=== PATIENT | female | born 1995 | race Caucasian/White ===

== ENCOUNTER 2020-03-17 10:04 | Outpatient (REF) | payer OTHER, SELFPAY ==
[2020-03-18 02:49] LABS: CT PCR NOT DETECTED (Not Detect.); NG PCR NOT DETECTED (Not Detect.)
[2020-03-18 08:11] LABS: BV Int Neg Control Negative (Negative); BV Int Pos Control Positive (Positive)
== END 2020-03-17 10:05 | disposition home or self-care (01) ==
LOC: HO.LAB 10:04
PROVIDERS: Visit Provider Nurse Practitioner Family
DX: R10.2 Pelvic and perineal pain (principal); R30.0 Dysuria
CPT/HCPCS: 87086; 87088; 87186; 87480; 87491; 87510; 87591; 87660

== ENCOUNTER 2020-03-17 17:16 | Emergency (ER) | payer OTHER, SELFPAY ==
[2020-03-17 17:29] VITALS: BP 133/76; PULSE 100; RESP 14; TEMP 36.8; O2SAT 100; BMI 21.2
--- NOTE | 2020-03-17 19:08 | ED_ITS ---
HPI - Female Genitourinary General Chief complaint: Urogenital-Female Stated complaint: uti Time Seen by Provider: 03/17/20 19:08 Source: patient Mode of arrival: ambulatory Limitations: no limitations History of Present Illness MD elicited complaint: dysuria, UTI and possible STD (Recently sexually active with new partner unprotected) Onset (ago): day(s) (Several) Location of symptoms: vaginal Severity: mild Female Urogenital Radiation: Non-Radiating Quality of pain: other (Burning/ache-like) Consistency: intermittent (With voids) Vaginal discharge: none Vaginal bleeding: none Urinary symptoms: Dysuria Exacerbating factors: urination Relieving factors: none Associated symptoms: denies other symptoms Sexual activity: New Sexual Partners Patient : No Related Data Home Medications Medication Instructions Recorded Confirmed dextroamphetamine-amphetamine ER 1 cap PO DAILY PRN 03/17/20 10 mg 24hr capsule,extend release flu vac [id number] 36mos up(PF) ml IM 03/17/20 Previous Rx's Medication Instructions Recorded nitrofurantoin monohyd/m-cryst 100 mg PO Q12H 7 Days #14 cap 03/17/20 [Macrobid] phenazopyridine [Pyridium] 100 mg PO TID PRN #6 tab 03/17/20 metronidazole 500 mg tablet 500 mg PO BID 7 Days #14 tab 03/18/20 Allergies Allergy/AdvReac Type Severity Reaction Status Date / Time No Known Allergies Allergy Unverified 01/22/20 19:04 [No Known Allergies*] Review of Systems Review of Systems: Constitutional: No Weight loss, No Fever, No Chills, No Night Sweats, No Fatigue, No Malaise ENT/Mouth: No Hearing loss, No Ear Pain, No Nasal Congestion, No Sinus Pain, No Hoarseness, No sore throat, No Rhinorrhea, No Swallowing Difficulty Eyes: No Eye Pain, No Swelling, No Redness, No Foreign Body, No Discharge, No Vision Changes Cardiovascular: No Chest Pain, No SOB, No Dyspnea on Exertion, No Orthopnea, No Edema, No Palpitations Respiratory: No Cough, No Sputum, No Wheezing, No Smoke Exposure, No Dyspnea Gastrointestinal: No Nausea, No Vomiting, No Diarrhea, No Constipation, No abdominal Pain, No Hematochezia, No Melena Genitourinary: as noted in HPI, no rash or lesions Musculoskeletal: No joint pain, No Myalgias, No Joint Swelling Skin: No Skin Lesions, No rash Neuro: No Weakness Psych: No Social Issues Heme/Lymph: No Bruising, No Bleeding,No Lymphadenopathy Endocrine: No Polyuria, No Polydipsia, No Temperature Intolerance Yes all other systems are reviewed and are negative [facility] Past Medical History Attestation statement: The following information was validated with the patient. Medical History No known health problems Social History Social History Alcohol intake: current Alcohol intake frequency: holidays/special occasions only Smoking Status: Current some day smoker Use of substances other than those prescribed or required for medical reasons: No Advance Directives: No Advance Directives Information Provided: Yes Physical Exam Vital Signs: Vital Signs: Last Vital Signs Temp 99.4 F 03/17/20 21:29 Pulse 84 03/17/20 21:29 Resp 16 03/17/20 21:29 BP 122/91 H 03/17/20 21:29 Pulse Ox 98 03/17/20 21:29 Body Mass Index 21.2 Const: General: cooperative and healthy appearing; No acute distress or intoxicated appearing Nutritional Appearance: average body habitus Orientation/consciousness: patient oriented x3 HENMT: Head: Yes normal to inspection Ears: hearing grossly normal bilaterally Eyes: General: appearance normal, both eyes and all related structures Visual Barton: normal visual barton by confrontation Neck: Neck: Yes normal visual inspection and No tender Thyroid: Thyroid normal Chest: Chest palpation & inspection: normal inspection of the chest Resp: Effort & Inspection: normal respiratory effort Cardio: Jugular venous distension: no JVD GI: Inspection: Yes normal to inspection Palpation (GI): Soft to palpation, nontender, no guarding, not rigid, No Carnett's sign positive, No Rebound tenderness present and No Bladder palpation abnormal Percussion: Yes normal to percussion Auscultation: normal bowel sounds : Other: JOSE Strickland present for credit administrator General: No Bladder palpation abnormal and Yes no CVA tenderness Speculum Exam - Vagina: normal vaginal discharge (Very slight mucousy with DC), vagina not atrophic, no cysts, not erythematous, no foreign bodies, No vaginal bleeding, No tissue present in vagina, no masses, no swelling and nontender Speculum Exam - Cervix: normal appearance of the cervix OB/external & speculum: no foreign bodies, no tissue noted in vagina and vaginal bleeding Back/Spine/Pelvis: Back: no CVA tenderness Skin: General skin exam: no rashes or lesions noted Neuro: General: patient oriented x3 Extrem: General: Yes normal to inspection Course Course Course Narrative: Labs and pelvic ultrasound rule out cyst versus torsion. Repeat UA with microscopic analysis. Patient had BV/CT and she swabs done at urgent care results are pending in EMR. Given her risk factor and recent unprotected intercourse will go ahead and treat empirically with ceftriaxone/azithromycin after discussion with patient. Reevaluation(s) Reevaluation #1: For UA 2+ leukocyte Estrace without epithelial or bacterial cells. Given her symptoms patient was given ceftriaxone azithromycin for coverage of her nail disease. Will start on 7 day course Macrobid with panel testing pending. Labs as well as ultrasound findings reviewed. Patient denies any pain or discomfort at this time. Will follow-up closely with her primary care doctor. MDM - Female Genitourinary Differential Diagnosis Differential diagnosis: Likely urinary tract infection, bacterial vaginosis, trichomoniasis, cervicitis, ovarian cyst and vaginitis; Unlikely ruptured ovarian cyst, cyst of Bartholin's gland, cystitis and dysmenorrhea Medical Records Attestation: I reviewed the patient's medical records. Lab Data Attestation: I reviewed the patient's lab results. Result diagrams: 03/17/20 19:24 03/17/20 19:24 Labs: Lab Results 03/17/20 03/17/20 03/17/20 Range/Units 19:21 19:24 19:24 WBC 13.4 H (4.8-10.8) X10*3/uL RBC 4.42 (4.20-5.50) X10*6/uL Hgb 13.5 (12.0-16.0) g/dl Hct 39.3 (37-47) % MCV 88.9 (80-98) fL MCH 30.5 (27.0-33.0) pg MCHC 34.4 (31.0-35.0) g/dl RDW 12.2 (11.0-16.0) % Plt Count 274 (160-400) X10*3/uL MPV 9.7 (9.4-12.3) fL Immature Gran % (Auto) 0.4 (0.0-0.4) % Neut % (Auto) 70.2 (45-73) % Lymph % (Auto) 21.3 (20-40) % [place] % (Auto) 7.6 (2-11) % Eos % (Auto) 0.2 (0-4) % Baso % (Auto) 0.3 (0-2) % Lymph # (Auto) 2.8 (1.2-4.9) X10*3/uL [place] # (Auto) 1.0 (0.1-1.2) X10*3/uL Eos # (Auto) 0.0 (0.0-0.4) X10*3/uL Baso # (Auto) 0.0 (0.0-0.2) X10*3/uL Abs Immat Gran (auto) 0.05 H (0.00-0.03) X10*3/uL Absolute Neuts (auto) 9.4 H (2.0-8.3) X10*3/uL Absolute Nucleated RBC 0.000 (0.0-0.012) X10*3/uL Nucleated RBC % (auto) 0.0 (0.0-0.2) /100WBC Sodium 140 (135-145) mmol/L Potassium 3.4 (3.3-5.1) mmol/l Chloride 103 (96-108) mmol/L Carbon Dioxide 25 (22-29) mmol/L Anion Gap 15 (12-20) BUN 7 L (9-16) mg/dL Creatinine 0.74 (0.5-1.4) mg/dL Estim Creat Clear Calc 115.4 Estimated GFR > 60 Random Glucose 82 (60-115) mg/dL Calcium 9.4 (8.4-10.2) mg/dL Total Bilirubin 0.6 (0.0-1.0) mg/dL AST 16 (5-31) U/L ALT 13 (0-31) U/L Alkaline Phosphatase 43 (39-117) U/L Total Protein 7.8 (6.5-8.0) g/dL Albumin 4.8 (3.5-5.0) g/dL Urine Color YELLOW Urine Appearance CLEAR Urine pH 7.0 (5.0-8.0) Ur Specific [place] 1.010 (1.005-1.025) Urine Protein NEG (NEG-TRACE) MG/DL Urine Glucose (UA) NEG (NEG) MG/DL Urine Ketones NEG (NEG) MG/DL Urine Blood 3+ H (NEG) Urine Nitrite NEG (NEG) Ur Leukocyte Esterase 2+ H (NEG) Urine RBC 1-4 (0) /HPF Urine WBC 10-14 H (0-4) /HPF Ur Squamous Epith Cells NONE /LPF Urine Bacteria NONE /LPF Urine Test NEGATIVE (NEGATIVE) Imaging Data Pelvic/transvaginal/ovarian Doppler ultrasound: Radiologist's impression: Mikala Erickson 24 F [address] [address] Ultrasound Report Signed Patient: Mikala Erickson MMR#: [id number] : 1995Acct:[id number] Age/Sex: 24 / FADM Date: 03/17/20 Loc: .ED Attending Dr: Ordering Physician: Darian Hoffman NP Date of Service: 03/17/20 Procedure(s): US pelvic complete Accession Number(s): [id number] cc: Darian Hoffman NP~ EXAMINATION: PELVIC ULTRASOUND CLINICAL INFORMATION: Pelvic pain COMPARISON: 12/08/2016 TECHNIQUE: Both transabdominal endovaginal ultrasound was performed FINDINGS: An anteverted uterus is present measuring 7.6 x 3.8 x 3.3 cm. An IUD is noted within the endometrial cavity in normal position. The right ovary was not seen. The left ovary measured 3.5 x 2.7 x 2.0 cm for a volume of 10 mL and appeared normal. A tiny amount of free fluid is present pelvis. US/US pelvic complete IMPRESSION: 1. Right ovary not visualized. Left ovary normal. 2. An IUD is present in the normal-appearing uterus in good position. Dictated By:MARY LUCAS MD Signed By:<Electronically signed by MARY LUCAS MD in OV>03/17/202042 DD/ 12 TD/TT: County Commissioner: Discharge Plan Discharge Clinical Impression: Urinary tract infection, Possible exposure to STD Patient Disposition: Home, Self-Care Additional Instructions: today you are evaluated for your urinary complaints and possible exposure to STD Your had STD testing done today in the office urine shows early urinary tract infection Your STD testing results are pending We have gone ahead and empirically treated you for possible to common STDs ( chlamydia/gonorrhea) Wait for the results of these We are going to start you on antibiotics for UTI please take these as prescribed for the full course Return if any concerns or worsening symptoms Thank you Prescriptions: New nitrofurantoin monohyd/m-cryst [Macrobid] 100 mg capsule 100 mg PO Q12H 7 Days Qty: 14 RF: 0 phenazopyridine [Pyridium] 100 mg tablet 100 mg PO TID PRN (Reason: pain) Qty: 6 RF: 0 No Action metronidazole 500 mg tablet 500 mg PO BID 7 Days Qty: 14 RF: 0 dextroamphetamine-amphetamine 10 mg capsule,extended release 24hr 1 cap PO DAILY PRNRF: 0 Afluria Qd 2019-(3yr up)(PF) 60 mcg (15 mcg x 4)/0.5 mL syringe IM RF: 0 Referrals: Kim Sandoval MD [Primary Care Provider] - 1 week Interventions: ED Discharge Assessment Last Done: 03/17/20 21:30 Discharge Date/Time: 03/17/20 21:30
--- NOTE | 2020-03-17 19:13 | US_ITS ---
X US/US pelvic ovarian doppler IMPRESSION: 1. Right ovary not visualized. Left ovary normal. 2. An IUD is present in the normal-appearing uterus in good position.
--- NOTE | 2020-03-17 19:13 | US_ITS ---
X US/US transvaginal IMPRESSION: 1. Right ovary not visualized. Left ovary normal. 2. An IUD is present in the normal-appearing uterus in good position.
--- NOTE | 2020-03-17 19:13 | US_ITS ---
X US/US pelvic complete IMPRESSION: 1. Right ovary not visualized. Left ovary normal. 2. An IUD is present in the normal-appearing uterus in good position.
[2020-03-17 19:31] LABS: MANUAL DIFF FLAG NO
[2020-03-17 19:31] LABS: Appearance Urine CLEAR; Color Urine YELLOW; Glucose Urine UA NEG (NEG); Leukocyte Esterase Urine 2+ (NEG); Nitrite Urine NEG (NEG); Urine Blood 3+ (NEG); Urine Ketones NEG (NEG); Urine Protein NEG (NEG-TRACE)
[2020-03-17 19:33] LABS: UPreg QC Valid YES; Urine Pregnancy NEGATIVE (NEGATIVE)
[2020-03-17 19:37] LABS: Basophils Percent Auto 0.3 % (0-2); Eosinophils Percent Auto 0.2 % (0-4); Hematocrit 39.3 % (37-47); Hemoglobin 13.5 g/dl (12.0-16.0); Imm Gran Abs Auto 0.05 X10*3/uL (0.00-0.03); Imm Gran Pct Auto 0.4 % (0.0-0.4); Lymphocytes Absolute Auto 2.8 X10*3/uL (1.2-4.9); Lymphocytes Percent Auto 21.3 % (20-40); Mean Corpuscular HGB Conc 34.4 g/dl (31.0-35.0); Mean Corpuscular Hemoglobin 30.5 pg (27.0-33.0); Mean Corpuscular Volume 88.9 fL (80-98); Mean Platelet Volume 9.7 fL (9.4-12.3); Monocytes Percent Auto 7.6 % (2-11); Neutrophils Absolute Auto 9.4 X10*3/uL (2.0-8.3); Neutrophils Percent Auto 70.2 % (45-73); Platelet Count 274 X10*3/uL (160-400); Red Blood Count 4.42 X10*6/uL (4.20-5.50); Red Cell Distribution Width 12.2 % (11.0-16.0); White Blood Count 13.4 X10*3/uL (4.8-10.8)
[2020-03-17 19:59] LABS: Alanine Aminotransferase 13 U/L (0-31); Albumin Level 4.8 g/dL (3.5-5.0); Alkaline Phosphatase 43 U/L (39-117); Anion Gap 15 (12-20); Aspartate Amino Transferase 16 U/L (5-31); Bilirubin Total 0.6 mg/dL (0.0-1.0); Blood Urea Nitrogen 7 mg/dL (9-16); Calcium 9.4 mg/dL (8.4-10.2); Carbon Dioxide 25 mmol/L (22-29); Chloride 103 mmol/L (96-108); Creatinine Clr Calc Pharmacy 115.4; Estimated Glomerular Filt Rate > 60; Glucose Random 82 mg/dL (60-115); Potassium 3.4 mmol/l (3.3-5.1); Sodium 140 mmol/L (135-145); Total Protein 7.8 g/dL (6.5-8.0)
[2020-03-17] MEDS: cefTRIAXone sodium 250 MG VIAL IM (20:42)
[2020-03-17] MEDS: Azithromycin 500 MG TABLET 1000 MG PO (20:42)
[2020-03-17 21:29] VITALS: BP 122/91; PULSE 84; RESP 16; TEMP 37.4; O2SAT 98
== END 2020-03-17 21:30 | disposition home or self-care (01) ==
PROVIDERS: Nurse Practitioner Primary Care; Emergency Provider Emergency Medicine Emergency Medical Services; PCP Internal Medicine
DX: N39.0 Urinary tract infection, site not specified (principal); R10.2 Pelvic and perineal pain; R30.0 Dysuria; Z20.2 Contact with and (suspected) exposure to infections with a predominantly sexual mode of transmission; F17.200 Nicotine dependence, unspecified, uncomplicated; Z79.899 Other long term (current) drug therapy; Z71.6 Tobacco abuse counseling
CPT/HCPCS: 36415; 76830; 76856; 80053; 81001; 81025; 85025; 93975; 96372; 99284; J0696

== ENCOUNTER 2020-08-19 08:46 | Outpatient (REF) | payer MEDICAID, SELFPAY ==
--- NOTE | ~2020-08-19 | US_ITS ---
EXAMINATION: US DIAGNOSTIC ULTRASOUND BREAST, LEFT CLINICAL INFORMATION: Palpable abnormality. COMPARISON: None. TECHNIQUE: Ultrasound of the breast is performed with real-time riggins-scale imaging and color Doppler. FINDINGS: In region of palpable abnormality, there is a heterogeneous density 2 o'clock position 9 cm from the nipple, measuring approximately 1.4 x 0.8 x 0.4 cm in size. There is no distal sound enhancement, and there is the appearance of some distal sound shadowing. There is some internal vascularity. The lesion is wider than it is tall. Ultrasound-guided core biopsy is recommended. Results are discussed with the patient at time of visit. Alethea at referring provider's office was notified of the above recommendation. US/US breast LT limited IMPRESSION: Palpable abnormality corresponds to a poorly defined vascular structure at 2 o'clock position 9 cm from the nipple, for which ultrasound-guided core biopsy is recommended. ASSESSMENT: BI-RADS 4: Suspicious. RECOMMENDATION: Ultrasound-guided biopsy left breast.
== END 2020-08-19 08:47 | disposition home or self-care (01) ==
LOC: HO.MAMMO 08:46
PROVIDERS: Visit Provider Internal Medicine
DX: N63.21 Unspecified lump in the left breast, upper outer quadrant (principal)
CPT/HCPCS: 76642

== ENCOUNTER 2020-08-26 09:47 | Outpatient (REF) | payer MEDICAID, SELFPAY ==
--- NOTE | ~2020-08-26 | US_ITS ---
PROCEDURE: US GUIDED BREAST BIOPSY, LEFT CLINICAL INFORMATION: Palpable lump 2:00 position left breast COMPARISON: August 19, 2020 PROCEDURAL DETAILS: The details of the procedure, as well as the risks, benefits, and alternatives to the procedure were explained to the patient in detail and all of her questions were answered, after which written informed consent was obtained. Site and side were confirmed. Prior to the procedure, sonography revealed a solid hypoechoic lesion with some mild vascularity.. A time-out was performed, the lesion intended for biopsy was targeted, and the skin of the left breast was then prepped and draped in the usual sterile fashion. Using sonographic guidance, sterile technique, and 1% lidocaine without epinephrine for local anesthesia, multiple automated core biopsies were obtained through the targeted area with a 14G spring loaded Achieve core biopsy device. There was real-time confirmation of appropriate needle passage. Sampling was documented. At the completion of tissue sampling, a single butterfly-shaped metallic clip was deposited at the biopsy site. There was no evidence of immediate complication. SPECIMEN: An appropriate sample was obtained. No postprocedure mammogram was performed with direct visualization of clip placement under ultrasound. The patient tolerated the procedure well and, after assuring adequate hemostasis, was discharged in good condition after reviewing postbiopsy breast care instructions. Final pathology results are pending. US/US breast ndl core biopsy LT IMPRESSION: 1. No immediate complication from ultrasound-guided percutaneous biopsy left breast. 2. Ultrasound was used to localize and guide marker clip placement. 3. Final pathology results are pending. A separate report with final recommendations will be issued once these results are made available.
== END 2020-08-26 09:48 | disposition home or self-care (01) ==
LOC: HO.MAMMO 09:47
PROVIDERS: PCP Internal Medicine; Visit Provider Internal Medicine
DX: N63.21 Unspecified lump in the left breast, upper outer quadrant (principal)
CPT/HCPCS: 19083; 88305

== ENCOUNTER 2021-02-10 18:50 | Emergency (ER) | payer MEDICAID, SELFPAY ==
[2021-02-10 20:19] VITALS: BP 131/75; PULSE 91; RESP 16; TEMP 37.1; O2SAT 100; BMI 21.2
[2021-02-10 20:42] LABS: Appearance Urine CLOUDY; Color Urine DK YELLOW; Glucose Urine UA 100 MG/DL (NEG); Leukocyte Esterase Urine 3+ (NEG); Nitrite Urine POS (NEG); Specific Gravity - Urine 1.015 (1.005-1.025); UACC Culture Trigger YES; Urine Blood 3+ (NEG); Urine Ketones 5 MG/DL (NEG); Urine Protein 2+ MG/DL (NEG-TRACE)
[2021-02-10 20:44] LABS: Urine Pregnancy NEGATIVE (NEGATIVE)
[2021-02-10 20:45] LABS: UPreg QC Valid YES
[2021-02-10 20:48] LABS: Bacteria Urine TRACE /LPF; Mucus Urine TRACE /LPF; Squamous Epithelial Cell Urine TRACE /LPF
[2021-02-10 20:49] LABS: RBC Urine 50-75 /HPF (0); WBC Urine 30-49 /HPF (0-4)
[2021-02-10 22:57] LABS: MANUAL DIFF FLAG NO
[2021-02-10 22:58] LABS: Basophils Percent Auto 0.3 % (0-2); Eosinophils Percent Auto 0.3 % (0-4); Hematocrit 38.7 % (37-47); Hemoglobin 13.2 g/dl (12.0-16.0); Imm Gran Abs Auto 0.02 X10*3/uL (0.00-0.03); Imm Gran Pct Auto 0.2 % (0.0-0.4); Lymphocytes Absolute Auto 1.7 X10*3/uL (1.2-4.9); Lymphocytes Percent Auto 14.7 % (20-40); Mean Corpuscular HGB Conc 34.1 g/dl (31.0-35.0); Mean Corpuscular Hemoglobin 30.4 pg (27.0-33.0); Mean Corpuscular Volume 89.2 fL (80-98); Mean Platelet Volume 9.6 fL (9.4-12.3); Monocytes Percent Auto 8.8 % (2-11); Neutrophils Absolute Auto 8.5 X10*3/uL (2.0-8.3); Neutrophils Percent Auto 75.7 % (45-73); Platelet Count 251 X10*3/uL (160-400); Red Blood Count 4.34 X10*6/uL (4.20-5.50); Red Cell Distribution Width 12.1 % (11.0-16.0); White Blood Count 11.2 X10*3/uL (4.8-10.8)
[2021-02-10 23:04] VITALS: BP 131/85; PULSE 91; RESP 18; O2SAT 100
[2021-02-10] MEDS: Phenazopyridine HCL 100 MG TABLET PO (23:09)
[2021-02-10] MEDS: Sulfamethox/Trimeth 800/160 TABLET 1 TAB PO (23:09)
[2021-02-10 23:18] LABS: Anion Gap 13 (12-20); Blood Urea Nitrogen 9 mg/dL (9-16); Calcium 9.9 mg/dL (8.4-10.2); Carbon Dioxide 23 mmol/L (22-29); Chloride 108 mmol/L (96-108); Creatinine Clr Calc Pharmacy 122.7; Estimated Glomerular Filt Rate > 60; Glucose Random 94 mg/dL (60-115); Potassium 3.9 mmol/L (3.3-5.1); Sodium 140 mmol/L (135-145)
--- NOTE | 2021-02-10 23:26 | ED.FEMALEGU ---
HPI - Female Genitourinary General Chief complaint: Urogenital-Female Stated complaint: uti? Time Seen by Provider: 02/10/21 22:43 Source: patient Mode of arrival: ambulatory Limitations: no limitations History of Present Illness HPI Narrative: Patient comes to the emergency room complaining of suprapubic pain and hematuria. Patient states he has had multiple UTIs in the past and feels the same. Patient denies flank pain, no fever or chills. Patient states her symptoms started approximately 8 hours ago. Related Data Home Medications Medication Instructions Recorded Confirmed flu vac [id number] 36mos up(PF) ml IM 03/17/20 08/19/20 clonazepam 0.5 mg tablet 0.5 mg PO DAILY PRN 08/13/20 08/19/20 dextroamphetamine-amphetamine ER 20 mg PO DAILY PRN cap 08/13/20 08/19/20 10 mg 24hr capsule,extend release levonorgestrel 20 mcg/24 hours (7 INTRAUTERINE 08/13/20 08/19/20 yrs) 52 mg intrauterine device (Mirena) Previous Rx's Medication Instructions Recorded phenazopyridine 100 mg tablet 100 mg PO TID PRN #6 tab 02/10/21 sulfamethoxazole 800 1 tab PO BID #6 tab 02/10/21 mg-trimethoprim 160 mg tablet (Bactrim DS) Allergies Allergy/AdvReac Type Severity Reaction Status Date / Time No Known Allergies Allergy Verified 02/10/21 20:19 [No Known Allergies*] Review of Systems Review of Systems: Constitutional : No Weight loss, No Fever, No Chills, No Night Sweats, No Fatigue, No Malaise ENT/Mouth : No Hearing loss, No Ear Pain, No Nasal Congestion, No Sinus Pain, No Hoarseness, No sore throat, No Rhinorrhea, No Swallowing Difficulty Eyes: No Eye Pain, No Swelling, No Redness, No Foreign Body, No Discharge, No Vision Changes Cardiovascular : No Chest Pain, No SOB, No Dyspnea on Exertion, No Orthopnea, No Edema, No Palpitations Respiratory : No Cough, No Sputum, No Wheezing, No Smoke Exposure, No Dyspnea Gastrointestinal : No Nausea, No Vomiting, No Diarrhea, No Constipation, No abdominal Pain, No Hematochezia, No Melena Genitourinary : no irregular bleeding, complaining of dysuria, hematuria, frequency, No Flank Pain, No Urinary Flow Changes, No Hesitancy Musculoskeletal : No joint pain, No Myalgias, No Joint Swelling Skin : No Skin Lesions, No rash Neuro : No Weakness, No Numbness, No Paresthesias, No Loss of Consciousness, No Dizziness, No Headache Psych : No Anxiety/Panic, No Depression, No SI/HI/AH/VH, No Social Issues, Heme/Lymph: No Bruising, No Bleeding,No Lymphadenopathy Endocrine : No Polyuria, No Polydipsia, No Temperature Intolerance [facility] Past Medical History Medical History ADHD (attention deficit hyperactivity disorder), inattentive type Mass of left breast No known health problems Surgical History No pertinent past surgical history Family History Family History (Updated 08/19/20 @ 10:17 by KENDRICK Riddle) Father HTN (hypertension) Anxiety Mother Afib Breast cancer, Onset Age: 54 Maternal Grandmother Cervical cancer Maternal Grandfather CVD (cardiovascular disease) Myocardial infarction Paternal Grandfather Unknown family medical history Paternal Grandmother Unknown family medical history Social History Social History (Updated 08/13/20 @ 10:08 by Marlen Burrell CMA) Alcohol intake: current Alcohol intake frequency: holidays/special occasions only Patient Tobacco Use Status: Current someday Tobacco user Use of substances other than those prescribed or required for medical reasons: No Advance Directives: No Advance Directives Information Provided: No Physical Exam Vital Signs: Vital Signs: Last Vital Signs Temp 98.8 F 02/10/21 20:19 Pulse 91 02/10/21 23:04 Resp 18 02/10/21 23:04 BP 131/85 02/10/21 23:04 Pulse Ox 100 02/10/21 23:04 Body Mass Index 21.2 Const: Other: Appearance: Alert. Oriented X3. No acute distress. Eyes: Pupils equal, round and reactive to light. ENT: Pharynx normal. Neck: Normal inspection. Neck supple. No lymph nodes noted. No crepitus CVS: Normal heart rate and rhythm. Pulses normal. Normal S1 and S2 Respiratory: No respiratory distress. Breath sounds normal. No Wheezing. No rales Abdomen: Soft and nontender. No rigidity. No distention. No CVA tenderness bilaterally Skin: Skin warm and dry. Normal skin color. Normal skin turgor. Extremities: No lower extremity edema. No lower extremity edema. No Lacerations. No Rash Neuro: Oriented X 3. No motor deficit. No sensory deficit. Moving all extermities. No slurred speech. Course Course Course Narrative: Patient does have a UTI, white blood cell count chronically elevated, no CVA tenderness, pyelonephritis or sepsis are not suspected. Patient was given the 1st dose of phenazopyridine and Bactrim in the emergency room. MDM - Female Genitourinary Lab Data Result diagrams: 02/10/21 22:52 02/10/21 22:52 Labs: Lab Results 02/10/21 02/10/21 02/10/21 Range/Units 20:34 20:34 22:52 WBC 11.2 H (4.8-10.8) X10*3/uL RBC 4.34 (4.20-5.50) X10*6/uL Hgb 13.2 (12.0-16.0) g/dl Hct 38.7 (37-47) % MCV 89.2 (80-98) fL MCH 30.4 (27.0-33.0) pg MCHC 34.1 (31.0-35.0) g/dl RDW 12.1 (11.0-16.0) % Plt Count 251 (160-400) X10*3/uL MPV 9.6 (9.4-12.3) fL Immature Gran % (Auto) 0.2 (0.0-0.4) % Neut % (Auto) 75.7 H (45-73) % Lymph % (Auto) 14.7 L (20-40) % [place] % (Auto) 8.8 (2-11) % Eos % (Auto) 0.3 (0-4) % Baso % (Auto) 0.3 (0-2) % Lymph # (Auto) 1.7 (1.2-4.9) X10*3/uL [place] # (Auto) 1.0 (0.1-1.2) X10*3/uL Eos # (Auto) 0.0 (0.0-0.4) X10*3/uL Baso # (Auto) 0.0 (0.0-0.2) X10*3/uL Abs Immat Gran (auto) 0.02 (0.00-0.03) X10*3/uL Absolute Neuts (auto) 8.5 H (2.0-8.3) X10*3/uL Absolute Nucleated RBC 0.000 (0.0-0.012) X10*3/uL Nucleated RBC % (auto) 0.0 (0.0-0.2) /100WBC Sodium (135-145) mmol/L Potassium (3.3-5.1) mmol/L Chloride (96-108) mmol/L Carbon Dioxide (22-29) mmol/L Anion Gap (12-20) BUN (9-16) mg/dL Creatinine (0.5-1.4) mg/dL Estim Creat Clear Calc Estimated GFR Random Glucose (60-115) mg/dL Calcium (8.4-10.2) mg/dL Urine Color DK YELLOW Urine Appearance CLOUDY Urine pH 6.0 (5.0-8.0) Ur Specific [place] 1.015 (1.005-1.025) Urine Protein 2+ H (NEG-TRACE) MG/DL Urine Glucose (UA) 100 H (NEG) MG/DL Urine Ketones 5 (NEG) MG/DL Urine Blood 3+ H (NEG) Urine Nitrite POS H (NEG) Ur Leukocyte Esterase 3+ H (NEG) Urine RBC 50-75 H (0) /HPF Urine WBC 30-49 H (0-4) /HPF Ur Squamous Epith Cells TRACE /LPF Urine Bacteria TRACE /LPF Urine Mucus TRACE /LPF Urine Test NEGATIVE (NEGATIVE) 02/10/21 Range/Units 22:52 WBC (4.8-10.8) X10*3/uL RBC (4.20-5.50) X10*6/uL Hgb (12.0-16.0) g/dl Hct (37-47) % MCV (80-98) fL MCH (27.0-33.0) pg MCHC (31.0-35.0) g/dl RDW (11.0-16.0) % Plt Count (160-400) X10*3/uL MPV (9.4-12.3) fL Immature Gran % (Auto) (0.0-0.4) % Neut % (Auto) (45-73) % Lymph % (Auto) (20-40) % [place] % (Auto) (2-11) % Eos % (Auto) (0-4) % Baso % (Auto) (0-2) % Lymph # (Auto) (1.2-4.9) X10*3/uL [place] # (Auto) (0.1-1.2) X10*3/uL Eos # (Auto) (0.0-0.4) X10*3/uL Baso # (Auto) (0.0-0.2) X10*3/uL Abs Immat Gran (auto) (0.00-0.03) X10*3/uL Absolute Neuts (auto) (2.0-8.3) X10*3/uL Absolute Nucleated RBC (0.0-0.012) X10*3/uL Nucleated RBC % (auto) (0.0-0.2) /100WBC Sodium 140 (135-145) mmol/L Potassium 3.9 (3.3-5.1) mmol/L Chloride 108 (96-108) mmol/L Carbon Dioxide 23 (22-29) mmol/L Anion Gap 13 (12-20) BUN 9 (9-16) mg/dL Creatinine 0.69 (0.5-1.4) mg/dL Estim Creat Clear Calc 122.7 Estimated GFR > 60 Random Glucose 94 (60-115) mg/dL Calcium 9.9 (8.4-10.2) mg/dL Urine Color Urine Appearance Urine pH (5.0-8.0) Ur Specific [place] (1.005-1.025) Urine Protein (NEG-TRACE) MG/DL Urine Glucose (UA) (NEG) MG/DL Urine Ketones (NEG) MG/DL Urine Blood (NEG) Urine Nitrite (NEG) Ur Leukocyte Esterase (NEG) Urine RBC (0) /HPF Urine WBC (0-4) /HPF Ur Squamous Epith Cells /LPF Urine Bacteria /LPF Urine Mucus /LPF Urine Test (NEGATIVE) Discharge Plan Discharge Clinical Impression: Urinary tract infection Patient Disposition: Home, Self-Care Instructions: Urinary Tract Infection in Women (ED) Additional Instructions: Please follow-up with your primary care physician tomorrow. If you have any worsening or new symptoms, please return to the emergency room or call 911 Prescriptions: New sulfamethoxazole-trimethoprim [Bactrim DS] 800-160 mg tablet 1 tab PO BID Qty: 6 RF: 0 phenazopyridine 100 mg tablet 100 mg PO TID PRN (Reason: pain) Qty: 6 RF: 0 No Action clonazepam 0.5 mg tablet 0.5 mg PO DAILY PRNRF: 0 Mirena 20 mcg/24 hours (6 yrs) 52 mg intrauterine device intrauterine RF: 0 Afluria Qd (3yr up)(PF) 60 mcg (15 mcg x 4)/0.5 mL syringe IM RF: 0 dextroamphetamine-amphetamine 10 mg capsule,extended release 24hr 20 mg PO DAILY PRNRF: 0
== END 2021-02-10 23:39 | disposition home or self-care (01) ==
PROVIDERS: Emergency Provider Emergency Medicine; PCP Internal Medicine
DX: N39.0 Urinary tract infection, site not specified (principal); Z87.440 Personal history of urinary (tract) infections
CPT/HCPCS: 36415; 80048; 81001; 81025; 85025; 87086; 87088; 87186; 99283; 99284

== ENCOUNTER 2021-05-03 11:12 | Emergency (ER) | payer MEDICAID, SELFPAY ==
[2021-05-03 12:19] VITALS: BP 135/71; PULSE 93; RESP 17; TEMP 36.7; O2SAT 97; BMI 21.2
--- NOTE | 2021-05-03 15:09 | ED_ITS ---
HPI - General Adult General Chief complaint: General Medical Stated complaint: Bat Exposure Time Seen by Provider: 05/03/21 15:09 Source: patient Mode of arrival: ambulatory Limitations: no limitations History of Present Illness HPI narrative: 25-year-old female who had a bat in her apartment for the last several days, touched the bat while she was getting it out of her apartment. She is on sure if the bat bit her. She was asleep for the last few nights when the at was in the apartment. Her primary care directed her here for rabies prophylaxis. She feels well otherwise. Related Data Home Medications Medication Instructions Recorded Confirmed flu vac [id number] 36mos up(PF) ml IM 03/17/20 08/19/20 clonazepam 0.5 mg tablet 0.5 mg PO DAILY PRN 08/13/20 08/19/20 dextroamphetamine-amphetamine ER 20 mg PO DAILY PRN cap 08/13/20 08/19/20 10 mg 24hr capsule,extend release levonorgestrel 20 mcg/24 hours (7 INTRAUTERINE 08/13/20 08/19/20 yrs) 52 mg intrauterine device (Mirena) Previous Rx's Medication Instructions Recorded phenazopyridine 100 mg tablet 100 mg PO TID PRN #6 tab 02/10/21 sulfamethoxazole 800 1 tab PO BID #6 tab 02/10/21 mg-trimethoprim 160 mg tablet (Bactrim DS) Allergies Allergy/AdvReac Type Severity Reaction Status Date / Time No Known Allergies Allergy Verified 02/10/21 20:19 [No Known Allergies*] Review of Systems Constitutional: Constitutional: Denies body ache(s), Denies chills, Denies fatigue, Denies fever(s), Denies headache(s), Denies malaise and Denies weakness Eyes: Eyes: Denies diplopia ENT: Denies vertigo, Denies dizziness, Denies otalgia, Denies headache(s), Denies mouth pain, Denies post nasal drip, Denies sinus pain, Denies sinus pressure, Denies sore throat and Denies throat swelling Cardiovascular: Cardiovascular: Denies chest pain, Denies syncope, Denies leg edema, Denies lightheadedness, Denies Loss of Consciousness, Denies palpitations and Denies dyspnea Respiratory: Respiratory: Denies chest congestion, Denies cough and Denies dyspnea Gastrointestinal: Gastrointestinal: Denies abdominal pain, Denies hematochezia, Denies constipation, Denies diarrhea and Denies vomiting Musculoskeletal: Musculoskeletal: Reports no additional musculoskeletal complaints Integumentary/Breasts: Comments: Possible bat bite, no open wounds Neurologic: Denies confusion, Denies vertigo, Denies dizziness, Denies syncope, Denies headache(s) and Denies weakness Psychiatric: Psychiatric: Denies anxiety, Denies confusion and Denies depression Endocrine: Endocrine: Denies fatigue and Denies palpitations Allergic/Immunologic: Allergic/Immunologic: Denies throat swelling PMFSH Past Medical History Medical History ADHD (attention deficit hyperactivity disorder), inattentive type Mass of left breast No known health problems Surgical History No pertinent past surgical history Family History Family History (Updated 08/19/20 @ 10:17 by KENDRICK Riddle) Father HTN (hypertension) Anxiety Mother Afib Breast cancer, Onset Age: 54 Maternal Grandmother Cervical cancer Maternal Grandfather CVD (cardiovascular disease) Myocardial infarction Paternal Grandfather Unknown family medical history Paternal Grandmother Unknown family medical history Social History Social History (Updated 08/13/20 @ 10:08 by Marlen Burrell CMA) Alcohol intake: current Alcohol intake frequency: holidays/special occasions only Patient Tobacco Use Status: Current someday Tobacco user Advance Directives: No Advance Directives Information Provided: Yes Patient : No Physical Exam Vital Signs: Vital Signs: Last Vital Signs Temp 98.0 F 05/03/21 12:19 Pulse 93 05/03/21 12:19 Resp 17 05/03/21 12:19 BP 135/71 05/03/21 12:19 Pulse Ox 97 05/03/21 12:19 BMI result Body Mass Index 21.2 Const: General: No confusion Nutritional Appearance: well nourished Orientation/consciousness: No confusion Limitations: no limitations HENMT: Head: Yes normal to inspection, Yes normocephalic and Yes atraumatic Ears: hearing grossly normal bilaterally, external ears normal, TM's normal bilaterally and EAC's normal General nose exam: Normal external nose present Face and sinus: Yes normal facial exam and Yes sinuses nontender Mouth: Normal oral and palatal mucosa present Throat: Yes posterior oropharynx normal Eyes: Conjunctivae: conjunctivae normal Pupils: Equal, round and reactive pupils present EOM: EOMs intact bilaterally Neck: Neck: Yes full ROM, Yes no lymphadenopathy and Yes supple Resp: Effort & Inspection: normal respiratory effort and able to speak in complete sentences Auscultation: clear to auscultation bilaterally, no crackles, no rales, no rhonchi and no wheezes Cardio: Rate: regular rate Rhythm: regular rhythm Heart sounds: S1 normal heart sound present and S2 normal heart sound present GI: Inspection: Yes normal to inspection Palpation (GI): Soft to palpation, nontender, no guarding and not rigid Percussion: Yes normal to percussion Auscultation: normal bowel sounds Skin: Other: No puncture wounds, open wounds, or lesions noted on patient's hands General skin exam: no rashes or lesions noted Neuro: General: No confusion Cranial nerves: Yes Equal, round and reactive pupils present Extrem: General: Yes normal to inspection and Yes full ROM Psych: Appearance: grossly normal Affect: normal affect Attitude: co operative Thought process: Normal thought process present Course Course Course Narrative: 25-year-old female here for prophylaxis for bat exposure. Patient is up-to-date on her tetanus, last tetanus shot was 2018 Will give rabies vaccination, immunoglobulin. Counseled patient to return to medical day stay for her next 3 vaccinations on days 3, 7, and 14 Discharge Plan Discharge Clinical Impression: Exposure to bat without known bite Patient Disposition: Home, Self-Care Instructions: Rabies Vaccine (By injection), Rabies Immune Globulin (By injection), Rabies (ED) Additional Instructions: Please return to medical day Prescriptions: No Action sulfamethoxazole-trimethoprim [Bactrim DS] 800-160 mg tablet 1 tab PO BID Qty: 6 RF: 0 phenazopyridine 100 mg tablet 100 mg PO TID PRN (Reason: pain) Qty: 6 RF: 0 clonazepam 0.5 mg tablet 0.5 mg PO DAILY PRNRF: 0 Mirena 20 mcg/24 hours (6 yrs) 52 mg intrauterine device intrauterine RF: 0 Afluria Qd 2019-(3yr up)(PF) 60 mcg (15 mcg x 4)/0.5 mL syringe IM RF: 0 dextroamphetamine-amphetamine 10 mg capsule,extended release 24hr 20 mg PO DAILY PRNRF: 0
[2021-05-03 15:34] VITALS: BP 139/66; PULSE 90; RESP 16; O2SAT 99
[2021-05-03] MEDS: Rabies Vaccine (PCEC)/PF 1 ML VIAL IM (16:16)
[2021-05-03] MEDS: Rabies Immune Globulin/PF 1,500 UNIT/5 ML VIAL 1270.06 UNIT IM (16:29)
== END 2021-05-03 16:54 | disposition home or self-care (01) ==
PROVIDERS: Emergency Provider Emergency Medicine; PCP Internal Medicine
DX: Z20.3 Contact with and (suspected) exposure to rabies (principal)
CPT/HCPCS: 90375; 90471; 90675; 96372; 99284

== ENCOUNTER 2021-05-06 10:06 | Outpatient (REF) | payer MEDICAID, SELFPAY | END 2021-05-06 10:07 | disposition home or self-care (01) | LOC: HO.MDS 10:06 | PROVIDERS: PCP Internal Medicine | DX: Z29.14 Encounter for prophylactic rabies immune globulin (principal); Z20.3 Contact with and (suspected) exposure to rabies | CPT/HCPCS: 90471; 90675 ==

== ENCOUNTER 2021-05-10 13:09 | Outpatient (REF) | payer MEDICAID, SELFPAY | END 2021-05-10 13:10 | disposition home or self-care (01) | LOC: HO.MDS 13:09 | PROVIDERS: PCP Internal Medicine | DX: Z29.14 Encounter for prophylactic rabies immune globulin (principal); Z20.3 Contact with and (suspected) exposure to rabies | CPT/HCPCS: 90471; 90675 ==

== ENCOUNTER 2021-05-17 13:04 | Outpatient (REF) | payer MEDICAID, SELFPAY | END 2021-05-17 13:05 | disposition home or self-care (01) | LOC: HO.MDS 13:04 | PROVIDERS: PCP Internal Medicine | DX: Z29.14 Encounter for prophylactic rabies immune globulin (principal); Z20.3 Contact with and (suspected) exposure to rabies | CPT/HCPCS: 90471; 90675 ==

== ENCOUNTER 2022-06-02 13:38 | Outpatient (REF) | payer BC, MEDICAID, SELFPAY ==
[2022-06-02 17:40] LABS: CT PCR NOT DETECTED (Not Detect.); NG PCR NOT DETECTED (Not Detect.)
== END 2022-06-02 13:39 | disposition home or self-care (01) ==
LOC: HO.LNP 13:38
PROVIDERS: PCP Internal Medicine; Visit Provider Advanced Practice Midwife
DX: Z01.419 Encounter for gynecological examination (general) (routine) without abnormal findings (principal); Z11.51 Encounter for screening for human papillomavirus (HPV)
CPT/HCPCS: 0353U; 88142

== ENCOUNTER 2022-06-20 15:59 | Outpatient (REF) | payer BC, MEDICAID, SELFPAY ==
--- NOTE | ~2022-06-20 | US_ITS ---
EXAMINATION: US PELVIS CLINICAL INFORMATION: Pelvic and perineal pain. COMPARISON: None TECHNIQUE: Ultrasound of the pelvis is performed using both transabdominal and transvaginal transducers along with Doppler. Transvaginal imaging is performed due to inadequate visualization transabdominally. FINDINGS: Uterus: The uterus is retroverted and retroflexed measuring 7.7 x 2.9 x 4.8 cm. The double wall endometrial thickness not well seen as an IUD is in place. The uterus is smooth in contour and has normal myometrial echogenicity. No visible fibroid. Incidental note made of a 2.6 x 1.4 x 1.3 cm cyst along the anterior wall of the vagina possibly representing a Elie duct cyst. Adnexa: Both ovaries are visualized. There is normal color flow to the adnexa. There is no ovarian torsion. There is no pelvic ascites or fluid collection. Right ovary measures 3.3 x 1.7 x 2.2 cm for a volume of 6.5 mL. Left ovary measures 3.6 x 2.0 x 2.3 cm for a volume of 8.7 mL and contains a corpus luteum cyst measuring 1.7 x 1.2 x 1.6 cm. US/US pelvic and transvaginal IMPRESSION: No significant abnormality is seen. An IUD is in place in good position. Incidentally noted Elie duct cyst.
== END 2022-06-20 16:00 | disposition home or self-care (01) ==
LOC: HO.US 15:59
PROVIDERS: PCP Internal Medicine; Visit Provider Advanced Practice Midwife
DX: Z30.431 Encounter for routine checking of intrauterine contraceptive device (principal); R10.2 Pelvic and perineal pain
CPT/HCPCS: 76830; 76856

== ENCOUNTER → 2022-08-10 08:06 | Outpatient (BNVA) | payer BC, MEDICAID, SELFPAY | PROVIDERS: Visit Provider Advanced Practice Midwife | DX: Z13.89 Encounter for screening for other disorder (principal) ==

== ENCOUNTER 2023-09-18 14:26 | Outpatient (AMB) | payer BC, MEDICAID, SELFPAY ==
--- NOTE | 2023-09-18 14:46 | MHC.OFFVIS ---
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 Doing well with no concerns. She tries to eat healthy and stays active with exercise. Currently is sexually active. She denies vaginal itching and irritation. STI screening offered; she declines. Denies family history of ovarian or colon cancer. FH breast cancer-mom. Last pap smear 2022, negative. [facility] Medical History Elie duct, cyst Mass of left breast ADHD (attention deficit hyperactivity disorder), inattentive type No known health problems Surgical History No pertinent past surgical history Family History Father HTN (hypertension) Anxiety Mother Afib Breast cancer, Onset Age: 54 Maternal Grandmother Cervical cancer Maternal Grandfather CVD (cardiovascular disease) Myocardial infarction Paternal Grandfather Unknown family medical history Paternal Grandmother Unknown family medical history Social History Household Members: Significant Other Housing: Apartment Alcohol intake: current Alcohol intake frequency: a few times a week Patient Tobacco Use Status: Former Tobacco user e-Cigarette/Vaping Use: Currently Using Current occupational status: student Current occupation: [email or web address], minor-in [employer]. Sexual orientation: Straight/Heterosexual Gender identity: Female Female Reproductive History Menstrual Age of Menarche: 11 control method: progestin IUCD (Mirena 05/2017) Total pregnancies: 0 Date of last pap smear: 06/05/22 (negative) Review of Systems Const All systems reviewed & are unremarkable except as noted in HPI and below Reports as per HPI Eyes Reports no additional complaints ENT Reports no additional complaints Card Reports no additional complaints Resp Reports no additional complaints GI Reports as per HPI and Reports no additional complaints Reports as per HPI Musc Reports no additional complaints Skin/Breast Reports as per HPI Neuro Reports no additional complaints Psych Reports no additional complaints Endo Reports no additional complaints Wilfredo/Lymph Reports no additional complaints Aller/Immun Reports no additional complaints Physical Exam Vital Signs: Last Vital Signs BP 140/72 H 09/18/23 14:48 BMI result Body Mass Index 20.8 Const General: cooperative, healthy appearing, no acute distress, well developed and alert Orientation/consciousness: patient oriented x3 HEENT Head: Yes normal to inspection Eyes General: appearance normal, both eyes and all related structures Neck Neck: Yes normal visual inspection Thyroid: Thyroid normal Chest Chest palpation & inspection: normal inspection of the chest and other (no puckering, dimpling, peau de orange, retraction, discharge, masses) Breast/axilla inspection: normal inspection of the breasts Breast/axilla palpation: normal palpation of the breasts Resp Effort & Inspection: normal respiratory effort GI Inspection: Yes normal to inspection Palpation (GI): Soft to palpation Rectal Exam - Female: deferred General: Yes bladder normal to palpation External Female Exam: normal external appearance and normal appearance of the urethra Speculum Exam - Vagina: normal appearance of the vagina, normal palpation and normal vaginal discharge Speculum Exam - Cervix: normal appearance of the cervix, normal palpation and Other cervical findings present (IUD strings at os) Bimanual exam- vagina & uterus: normal bimanual exam, normal palpation, uterine size normal, bladder normal to palpation, normal palpation and non-tender Bimanual Exam- Adnexa, other: no masses Skin General skin exam: no rashes or lesions noted Rashes: no rashes Neuro General: patient oriented x3 Cognition (Neuro): normal cognition Extrem General: Yes normal to inspection Psych Attitude: cooperative Thought process: Normal thought process present Assessment & Plan Assessment & Plan (1) Encounter for well woman exam with routine gynecological exam: Code(s): Z01.419 - Encounter for gynecological examination (general) (routine) without abnormal findings Category: Medical Plan: Discussed: Current recommendations for pap smears per ASCCP guidelines. Breast awareness and periodic breast exams. Maintain a healthy lifestyle including a well balanced diet and routine exercise. Use condoms for STI and prevention. Patient verbalizes understanding and agrees to the plan of care. She was given opportunity to ask questions and all questions were answered to the best of my ability. RTO in one year for annual tonsorial artist examination. This note is constructed using voice recognition software. While every effort has been made to ensure accuracy, cyber security systems engineer errors may have been included. Orders: Orders Pap Smear Today Z12.4 - Encounter for screening for malignant neoplasm of cervix Coding Level of Care Code Est Pt Prev Care 18-39y(82331) Diagnoses Encounter for well woman exam with routine gynecological exam Z01.419
[2023-09-18 14:48] VITALS: BP 140/72; BMI 20.8
== END 2023-09-18 15:26 | disposition home or self-care (01) ==
PROVIDERS: Visit Provider Advanced Practice Midwife
DX: Z01.419 Encounter for gynecological examination (general) (routine) without abnormal findings (principal)
CPT/HCPCS: 99395

== ENCOUNTER 2023-09-18 14:26 | Outpatient (REF) | payer BC, MEDICAID, SELFPAY ==
[2023-09-25 12:49] LABS: HPV mRNA E6/E7 rflx Not Detected (Not Detected)
== END 2023-09-18 14:27 | disposition home or self-care (01) ==
LOC: HO.LNP 14:26
PROVIDERS: Visit Provider Advanced Practice Midwife
DX: Z01.419 Encounter for gynecological examination (general) (routine) without abnormal findings (principal); Z11.51 Encounter for screening for human papillomavirus (HPV)
CPT/HCPCS: 87624; 88142

== ENCOUNTER 2024-09-23 10:14 | Outpatient (AMB) | payer BC, MEDICAID, SELFPAY ==
--- NOTE | 2024-09-23 10:18 | MHC.OFFVIS ---
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 Doing well with no recruiting scheduler concerns. Mirena since 2018, occasional spotting. Currently is sexually active, engaged. Recently graduated. She denies vaginal itching or irritation. STI screening offered; she declines. She tries to eat healthy and stays active with exercise. Denies family history of ovarian or colon cancer. FH breast cancer. Last pap smear 2023, negative. [facility] Medical History Elie duct, cyst Mass of left breast ADHD (attention deficit hyperactivity disorder), inattentive type No known health problems Surgical History No pertinent past surgical history Family History Father HTN (hypertension) Anxiety Mother Afib Breast cancer, Onset Age: 54 Maternal Grandmother Cervical cancer Maternal Grandfather CVD (cardiovascular disease) Myocardial infarction Paternal Grandfather Unknown family medical history Paternal Grandmother Unknown family medical history Social History Household Members: Significant Other Housing: Apartment Alcohol intake: current Alcohol intake frequency: a few times a week Patient Tobacco Use Status: Former Tobacco user e-Cigarette/Vaping Use: Currently Using Current occupational status: student Current occupation: [employer], minor-in [employer]. Sexual orientation: Straight/Heterosexual Gender identity: Female Female Reproductive History Menstrual Age of Menarche: 11 control method: progestin IUCD (Mirena 05/2017) Total pregnancies: 0 Date of last pap smear: 09/18/23 (neg pap and hpv) Review of Systems Const All systems reviewed & are unremarkable except as noted in HPI and below Reports as per HPI Eyes Reports no additional complaints ENT Reports no additional complaints Card Reports no additional complaints Resp Reports no additional complaints GI Reports as per HPI and Reports no additional complaints Reports as per HPI Musc Reports no additional complaints Skin/Breast Reports as per HPI Neuro Reports no additional complaints Psych Reports no additional complaints Endo Reports no additional complaints Wilfredo/Lymph Reports no additional complaints Aller/Immun Reports no additional complaints Physical Exam Vital Signs: Last Vital Signs BP 118/72 09/23/24 10:19 BMI result Body Mass Index 20.7 Const General: cooperative, healthy appearing, no acute distress, well developed and alert Orientation/consciousness: patient oriented x3 HEENT Head: Yes normal to inspection Eyes General: appearance normal, both eyes and all related structures Neck Neck: Yes normal visual inspection Thyroid: Thyroid normal Chest Chest palpation & inspection: normal inspection of the chest and other (no puckering, dimpling, peau de orange, retraction, discharge, masses) Breast/axilla inspection: normal inspection of the breasts Breast/axilla palpation: normal palpation of the breasts Resp Effort & Inspection: normal respiratory effort GI Inspection: Yes normal to inspection Palpation (GI): Soft to palpation Rectal Exam - Female: deferred General: Yes bladder normal to palpation External Female Exam: normal external appearance and normal appearance of the urethra Speculum Exam - Vagina: normal appearance of the vagina, normal palpation and normal vaginal discharge Speculum Exam - Cervix: normal appearance of the cervix, normal palpation and Other cervical findings present (IUD strings at the os) Bimanual exam- vagina & uterus: normal bimanual exam, normal palpation, uterine size normal, bladder normal to palpation, normal palpation and non-tender Bimanual Exam- Adnexa, other: no masses Skin General skin exam: no rashes or lesions noted Rashes: no rashes Neuro General: patient oriented x3 Cognition (Neuro): normal cognition Extrem General: Yes normal to inspection Psych Attitude: cooperative Thought process: Normal thought process present Assessment & Plan Assessment & Plan (1) Encounter for well woman exam with routine gynecological exam: Code(s): Z01.419 - Encounter for gynecological examination (general) (routine) without abnormal findings Category: Medical Plan Discussed: Current recommendations for pap smears per ASCCP guidelines. Breast awareness and periodic breast exams. Maintain a healthy lifestyle including a well balanced diet and routine exercise. Plan Mirena exchange, May 2025. Pre procedure planning counseling provided including taking ibuprofen 1 hour before scheduled visit with food and fluids. Patient verbalizes understanding and agrees to the plan of care. She was given opportunity to ask questions and all questions were answered to the best of my ability. RTO in one year for annual recruiting scheduler examination. This note is constructed using voice recognition software. While every effort has been made to ensure accuracy, seed potato arranger errors may have been included. Coding Level of Care Code Est Pt Prev Care 18-39y(37554) Diagnoses Encounter for well woman exam with routine gynecological exam Z01.419
[2024-09-23 10:19] VITALS: BP 118/72; BMI 20.7
--- OUTSIDE RECORDS SUMMARY | 2024-09-23 11:26 | XMS_ITS | Clinical Summary ---
Author Organization [employer] Address [address] [place] [address] Phone Care Team Providers Care Workers' Compensation Mediator Name Role Phone Guerda Montalvo NP Primary Care Provider [phone] Social History Tobacco Use Types Packs/Day Years Used Date Smoking Tobacco: Never Assessed Comments Unknown Sex and Gender Information Value Date Recorded Sex Assigned at Not on file Legal Sex Female 1:17 PM EST Gender Identity Not on file Sexual Orientation Not on file Plan of Treatment Health Maintenance Due Date Last Done Comments DTaP,Tdap,and Td Vaccines (1 - Tdap) 2012 Hepatitis B Vaccines (1 of 3 - 19+ 3-dose series) 2012 Cervical Cancer Screening: P ap Smear 2014 COVID-19 Vaccine ( - 2023-2 5 season) 2024 Depression Screening 04/11/2024 HIV Screening 04/11/2024 Hepatitis C Screening 04/11/2024 Social Influencers of Health Screening 04/11/2024 Influenza Vaccine (Season Ended) 2025 HIB Vaccines Aged Out No longer eligi ble based on patient's age to complete this topic HPV Vaccines Aged Out No longer eligi ble based on patient's age to complete this topic Hepatitis A Vaccines Aged Out No long er eligible based on patient's age to complete this topic IPV Vaccines Aged Out No longer eligi ble based on patient's age to complete this topic MMR Vaccines Aged Out No longer eligi ble based on patient's age to complete this topic Meningococcal ACWY Vaccine Aged Out N o longer eligible based on patient's age to complete this topic Meningococcal B Vaccine Aged Out No l onger eligible based on patient's age to complete this topic Pneumococcal Vaccine: Pediat rics (0 to 5 Years) and At-Risk Patients (6 to 64 Years) Aged Out No longer eligible b ased on patient's age to complete this topic RSV Immunization Patients Un jacob 20 months Aged Out No longer eligible b ased on patient's age to complete this topic Varicella Vaccines Aged Out No longer eligible based on patient's age to complete this topic Insurance [facility] Care Teams Workers' Compensation Mediator Relationship Specialty Start Date End Date Guerda Montalvo NP [address] [place] [id number] PCP - General Family Medicine 04/11/24
--- OUTSIDE RECORDS SUMMARY | 2024-09-23 11:26 | XMS_ITS | Patient Health Record ---
Author Organization [facility] Address [address] [place] [phone] Care Team Providers Care Braided Band Assembler Name Role Phone Guerda Montalvo Primary Care Provider Allergies No Known Allergies Results Component Value Reference Range Notes EKG Reviewed date:02/05/2024 07:04:14 AM Interpretation: Performing Lab: Notes/Report: ECGDiastolicBP 0 ECGHr 86 ECGPRInterval 148 ECGPWaveAxis 54 ECGQRSDuration 96 ECGQrsWaveAxis -6 ECGQTcInterval 409 ECGQTInterval 364 ECGSystolicBP 0 ECGTWaveAxis -1 RR_DiastolicBP 0 RR_MaxRRInterval 0 RR_MeanHR 0 RR_MeanRRInterval 0 RR_MinRRInterval 0 RR_NumBeats 0 RR_NumNormalBeats 0 RR_SystolicBP 0 Echocardiogram Reviewed date:08/08/2024 10:50:58 AM Interpretation: Performing Lab: Notes/Report: Urinalysis, Complete-[id number] Reviewed date:08/08/2024 12:21:24 PM Interpretation: Performing Lab:[facility] [place], [address] [place] [address], [place], Phone - [phone], Director - Gerard Notes/Report: Specific Gravette 1.009 1.005-1.030 pH 7.0 5.0-7.5 Urine-Color Yellow Yellow Appearance Clear Clear WBC Esterase Negative Negative Protein Negative Negative/Trace Glucose Negative Negative Ketones Negative Negative Occult Blood Negative Negative Bilirubin Negative Negative Urobilinogen,Semi-Qn 0.2 0.2-1.0 mg/dL Nitrite, Urine Negative Negative Microscopic Examination Micr oscopic follows if indicated. Microscopic Examination See below: Micr oscopic was indicated and was performed. WBC None seen 0 - 5 /hpf RBC None seen 0 - 2 /hpf Epithelial Cells (non renal) 0-10 0 - 10 /hpf Casts None seen None seen /lpf Bacteria None seen None seen/Few CBC With Differential/Platel et-[id number] Reviewed date:08/08/2024 12:21:24 PM Interpretation: Performing Lab:[facility] [place], [address] [facility], Phone - [phone], Director - Gerard Notes/Report: WBC 8.2 3.4-10.8 x10E3/uL RBC 4.75 3.77-5.28 x10E6/uL Hemoglobin 14.4 11.1-15.9 g/dL Hematocrit 42.6 34.0-46.6 % MCV 90 79-97 fL MCH 30.3 26.6-33.0 pg MCHC 33.8 31.5-35.7 g/dL RDW 12.0 11.7-15.4 % Platelets 397 150-450 x10E3/uL Neutrophils 57 Not Estab. % Lymphs 33 Not Estab. % Monocytes 8 Not Estab. % Eos 1 Not Estab. % Basos 0 Not Estab. % Neutrophils (Absolute) 4.8 1.4-7.0 x10E3/uL Lymphs (Absolute) 2.7 0.7-3.1 x10E3/uL Monocytes(Absolute) 0.6 0.1-0.9 x10E3/uL Eos (Absolute) 0.1 0.0-0.4 x10E3/uL Baso (Absolute) 0.0 0.0-0.2 x10E3/uL Immature Granulocytes 1 Not Estab. % Immature Grans (Abs) 0.0 0.0-0.1 x10E3/uL Vitamin D, 08-[id number] Reviewed date:08/08/2024 12:21:24 PM Interpretation: Performing Lab:[facility] [place], [address] [place] [address], [place], Phone - [phone], Director - Gerard Notes/Report: Vitamin D, 25-Hydroxy 15.6 30.0-100.0 ng/mL Vitamin D deficiency has been defined by the [place] of Medicine and an Endocrine Society practice guideline as a level of serum 25-OH vitamin D less than 20 ng/mL (1,2). The Endocrine Society went on to further define vitamin D insufficiency as a level between 21 and 29 ng/mL (2). 1. IOM ([place] of Medicine). 2010. Dietary reference intakes for calcium and D. [place]: The National Academies Press. 2. Nazario MF, Juan Manuel NAPIER, Giovanna DICKINSON, et al. Evaluation, treatment, and prevention of vitamin D deficiency: an Endocrine Society clinical practice guideline. JCEM. 2010; 96(7):1911-30. HCV Antibody RFX to Quant PC [id number] Reviewed date:08/08/2024 12:21:24 PM Interpretation: Performing Lab:[facility] [place], [address] [facility], [place], Phone - [phone], Director - Gerard Notes/Report: HCV Ab Non Reactive Non Reactive Interpretation: Not infected with HCV unless early or acute infection is suspected (which may be delayed in an immunocompromised individual), or other evidence exists to indicate HCV infection. Comp. Metabolic Panel (14)-3 Reviewed date:08/08/2024 12:21:24 PM Interpretation: Performing Lab:[facility] [place], [address], [place], Phone - [phone], Director - MDStormy Notes/Report: Glucose 89 70-99 mg/dL BUN 10 6-20 mg/dL Creatinine 0.65 0.57-1.00 mg/dL eGFR 121 >59 mL/min/1.73 BUN/Creatinine Ratio 15 9-23 Sodium 138 134-144 mmol/L Potassium 4.2 3.5-5.2 mmol/L Chloride 102 96-106 mmol/L Carbon Dioxide, Total 22 20-29 mmol/L Calcium 10.0 8.7-10.2 mg/dL Protein, Total 7.9 6.0-8.5 g/dL Albumin 4.9 3.9-4.9 g/dL Globulin, Total 3.0 1.5-4.5 g/dL Bilirubin, Total 0.3 0.0-1.2 mg/dL Alkaline Phosphatase 56 44-121 IU/L AST (SGOT) 19 0-40 IU/L ALT (SGPT) 16 0-32 IU/L LP+Non-HDL Cholesterol-[id number] Reviewed date:08/08/2024 12:21:24 PM Interpretation: Performing Lab:[facility] [place], [address], [place], Phone - [phone], Director - Gerard Notes/Report: Cholesterol, Total 215 100-199 mg/dL Triglycerides 45 0-149 mg/dL HDL Cholesterol 74 >39 mg/dL VLDL Cholesterol Wilfrido 8 5-40 mg/dL LDL Chol Calc (NIH) 133 0-99 mg/dL Non-HDL Cholesterol 141 0-129 mg/dL Reason For Referral Reason Pt with over 11,000 PVCs and is symptomatic - would benefit from consult faxed Diagnosis 1 Ventricular prematur e depolarization (I49.3) Referral Organization [facility] Referring Provider First Name Guerda Referring Provider Last Name Katia Referring Provider Speciality Nurse Hermelindo joyce Referred Provider Quentin Jett Referred Provider Specialty Cardiology General Notes Milagros LENNON 08/2023 10:34:43 AM >faxed referral from medical records with holter results Referral Priority Routine Medications Medication SIG (Take, Route, Frequency, Duration) Notes Start Date End Date Status Mirena (52 MG) 20 MCG/DAY as directed Intrauterine Active clonazePAM 0.5 MG 1 tablet Orally Once a day As needed 04/19/2023 Active Amphetamine-Dextroampheta mine 10 MG Oral for 60 Days Active Tretinoin 0.05 % 1 application in the evening to face twice a week Externally three times a week for 30 days Active Metoprolol Succinate ER 25 MG 1/2 tablet Orally twice a day for 30 days Active Immunizations Vaccine Route Administration Date Status Comme nts *Tdap Unknown 07/05/2017 Administered COVID-19 Moderna BiValent Booster Unknown 01/13/2022 Ad ministered [id number] Vaccine Unknown 08/05/2020 Administere d [id number] Vaccine Unknown 09/02/2020 Administere d [id number] Vaccine Unknown 04/07/2021 Administere d Influenza-Afluria (IIV4) Unknown 04/05/2019 Administere d Influenza-Afluria (IIV4) Unknown 02/26/2020 Administere d Rabies, intramuscular injection Unknown 05/03/2021 Admi nistered Rabies, unspecified formulation Unknown 01/09/2017 Admi nistered Rabies, unspecified formulation Unknown 01/13/2017 Admi nistered Social History Tobacco Use: Social History Observation Description Date Details (start date - stop date) Former Smoker NA - 02/21/2024 Alcohol Screen (Audit-C) Question Answer Notes Did you have a drink contain ing alcohol in the past year? Yes How often did you have a dri nk containing alcohol in the past year? 2 to 4 times a month (2 points) How many drinks did you have on a typical day when you were drinking in the past year? 1 or 2 drinks (0 point) How often did you have 6 or more drinks on one occasion in the past year? Never (0 point) Points 2 Interpretation Negative Tobacco use other than smoking: Question Answer Notes Are you an other tobacco user? No p revious Vaping Tobacco Control (Standard) Question Answer Notes Tobacco use: Former smoker When did you stop smoking? 02/21/2024 Problems Problem Type SNOMED Code ICD Code Onset Dates Problem Status W/U Status Risk Notes Problem Vitamin D deficiency (96968837) Vitamin D deficiency, unspecified (E55.9) Active confirmed Problem Mixed hyperlipidemia (951733927) Mixed hyperlipidemia (E78.2) Active confirmed Problem Ventricular premature depolarization (096064183) Ventricular premature depolarization (I49.3) Active confirmed Problem Atopic dermatitis (24024175) Other atopic dermatitis (L20.89) Active confirmed Problem Rosacea (234958047) Other rosacea (L71.8) Active confirmed Problem Attention deficit hyperactivity disorder, 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) Attention and concentration deficit (R41.840) Active confirmed Vital Signs Heart Rate 77 /min 08/07/2024 Temperature 95.6 degrees Fahrenheit 08/07/2024 Oximetry 98 % 08/07/2024 Blood pressure diastolic 76 mm Hg 08/07/2024 Height 68 in 08/07/2024 Blood pressure systolic 122 mm Hg 08/07/2024 Weight 141 lbs 08/07/2024 BMI 21.44 kg/m2 08/07/2024 Procedures Procedure Date Ordered Date Performed Result Body Sit e HOLTER MONITOR, 7 DAYS, APPLICATION 01/15/2024 01/15/2024 N/A HOLTER MONITOR, 7 DAYS, INTERPRETATION 03/06/2024 N/A HOLTER MONITOR, 7 DAYS, APPLICATION 03/06/2024 N/A Encounters Encounter Location Date Provider Diagnosis [facility] [address] [id number] 11/14/2023 Guerda Montalvo Attention and concentration deficit R41.840 ; Mixed hyperlipidemia E78.2 ; Melanocytic nevi of right lower limb, including hip D22.71 and Acne vulgaris L70.0 [facility] [address] [id number] 01/15/2024 Guerda Montalvo Palpitations R00.2 ; Melanocytic nevi of right lower limb, including hip D22.71 and Other rosacea L71.8 [facility] [address] [id number] 03/06/2024 Guerda Montalvo Ventricular prematur e depolarization I49.3 ; Palpitations R00.2 and Other rosacea L71.8 [facility] [address] [id number] 04/09/2024 Guerda Montalvo Ventricular prematur e depolarization I49.3 and Palpitations R00.2 [facility] [address] [id number] 08/07/2024 Guerda Montalvo Encounter for genera l adult medical examination without abnormal findings Z00.00 ; Ventricular premature depolarization I49.3 ; Palpitations R00.2 ; Mixed hyperlipidemia E78.2 ; Attention and concentration deficit R41.840 ; Acne vulgaris L70.0 ; Vitamin D deficiency, unspecified E55.9 ; Encounter for screening for cardiovascular disorders Z13.6 ; Encounter for immunization Z23 ; Encounter for antibody response examination Z01.84 ; Encounter for screening for other viral diseases Z11.59 ; Encounter for screening examination for other mental health and behavioral disorders Z13.39 and Encounter for screening for malignant neoplasm of cervix Z12.4 [facility] [address] [id number] 11/16/2023 Guerda Montalvo Acne vulgaris L70.0 [facility] [address] [id number] 02/01/2024 Guerdasangeetha Echeverria MD [address] [id number] 05/23/2024 Guerda Echeverria MD [address] [id number] 06/06/2024 Guerda Echeverria MD [address] [id number] 08/08/2024 Guer[facility] Echeverria MD [address] [id number] 02/14/2024 Guerda Montalvo Ventricular prematur e depolarization I49.3 Assessments Encounter Date Diagnosis (ICD Code) Assessment Notes Treatment Notes Treatment Clinical Notes Section Notes 11/14/2023 Attention and concentration deficit (ICD-10 - R41.840) Given patient's concerns of uncontrolled focus and concentration despite current ADD treatment, would like to change patient's medication for better management of her symptoms. Patient to stop Aderral and will begin Vyvanse to see if this can better manage her symptoms of concern. Plan will be for follow-up in 2 months to reassess symptoms and patient aware to follow-up should she have any negative side effects or concerns with switching her [facility] 11/16/2023 Acne vulgaris (ICD-10 - L70.0) 01/15/2024 Melanocytic nevi of right lower limb, including hip (ICD-10 - D22.71) Reviewed patient's concerns of change in size and color of nevi located to right thigh. Patient verbally consented to remove atypical mole, see procedure note below 01/15/2024 Palpitations (ICD-10 - R00.2) EKG completed in office today normal sinus rhythm noted. 7-day Holter monitor placed for further evaluation of palpitations. Patient to follow-up with any new or worsening symptoms and she is aware to follow-up in 1 month to review Holter monitor results if no additional symptoms require a visit sooner 02/14/2024 Ventricular premature depolarization (ICD-10 - I49.3) 03/06/2024 Ventricular premature depolarization (ICD-10 - I49.3) Reviewed patient's recent Holter monitor results. She was only able to tolerate the monitor for 3 days but during this time she had over 8000 PVCs. Discussed with patient that beginning metoprolol would be helpful to manage her PVCs/palpitations. Patient declined starting this medication after last visit and would like to hold off as she she feels as though her palpitations have improved since she stopped vaping with nicotine. Due to the short amount of time with Holter monitor in place, did discuss that we will place a new 7-day Holter monitor for further evaluation and to reassess PVC epsiodes. If PVCs do decrease then patient can remain off of metoprolol. Patient was also made aware that if PVCs remain elevated she would benefit from beginning a beta-stefania as well as seeing cardiology given the amount of PVCs and a short period of time 11/14/2023 Mixed hyperlipidemia (ICD-10 - E78.2) Previous labs did reveal slight elevation in LDL. Patient to continue working on adjusting her diet as well as taking her fish oil supplement, [employer], daily to help lower her LDL. Will recheck her lipid panel to ensure adequate LDL control 04/09/2024 Ventricular premature depolarization (ICD-10 - I49.3) Reviewed with patient her repeat Holter monitor results. Patient was previously noted to have over 8000 PVCs on her Holter monitor, and this Holter monitor also confirmed over 11,000 PVCs during the time she wore this. Discussed with patient beginning metoprolol and she is agreeable to begin this medication for further assistance. Due to the increased PVCs would like patient to be evaluated by cardiology to discuss any further interventions to assist in managing her PVCs and her being symptomatic when they occur 08/07/2024 Ventricular premature depolarization (ICD-10 - I49.3) Reviewed with patient her previous Holter monitor results. Patient was noted to have over 8000 PVCs on her Holter monitor, and then a repeat Holter monitor also confirmed over 11,000 PVCs. Her echo was reviewed and normal, without findings. Given these elevations in PVCs pt would benefit from completing a stress test and pt agreeable to move forward with a nuclear stress test. She also admits to not taking her Metorpolol as she is nervous to start this medication. Twice daily to see if this helps improve her palpitations when she does continue to feel, more so when she does vape. Encouraged patient to decrease her amount of vaping and she states she is working on quitting as she quit in May and had a noticeable decline in her palpitations 08/07/2024 Encounter for general adult medical examination without abnormal findings (ICD-10 - Z00.00) General healthcare up-to-date. Will obtain updated routine labs. Plan will for annual 1 year 08/07/2024 Palpitations (ICD-10 - R00.2) See plan above. Patient's mother is also currently followed by cardiology due to worsening heart failure and will be having an ICD placed due to low EF. Given her mother's cardiac history will obtain a stress test for increase level of PVC episodes. Patient agreeable to this plan 04/09/2024 Palpitations (ICD-10 - R00.2) See plan above. Patient's mother is also currently followed by cardiology due to worsening heart failure and will be having an ICD placed due to low EF. Given her mother's cardiac history will obtain an echocardiogram for baseline as well as refer patient to cardiology given her increased PVC episodes. Patient agreeable to this plan 11/14/2023 Melanocytic nevi of right lower limb, including hip (ICD-10 - D22.71) Discussed with patient that the mole located to her left thigh does not seem overly concerning but given the slight irregular borders did discuss patient being seen by dermatology. Patient declined wanting a referral to dermatology and states she will continue to monitor and if mole grows in size, changes in color and/or shape, patient to follow-up and we can biopsy mole or send to dermatology for further evaluation and skin check 03/06/2024 Palpitations (ICD-10 - R00.2) See plan above 01/15/2024 Other rosacea (ICD-10 - L71.8) Patient has been using topical treatments, both OTC and prescription, to assist with acne management. Despite these treatments patient's acne does not seem to be well-controlled at this time. There is worsening acne noted to cheeks and chin with redness and irritation noted around acne. Will begin Retin-A and reviewed proper use of this medication and patient to use this medication as prescribed. Patient also cautioned on photosensitivity with use of this medication and should she have any negative side effects, patient aware to follow-up sooner than next visit 11/14/2023 Acne vulgaris (ICD-10 - L70.0) Discussed with patient her persistent, moderate acne despite [id number] treatment. Will begin Retin-A to see if this can better manage patient's acne. Cautioned on proper use of this medication and patient aware to use this only 2 nights a week and to ensure she washes her face properly in the morning. She should also be cautious of sun exposure as this can cause skin sensitivity. If patient has any negative side effects or she feels as though she cannot tolerate Retin-A, patient to follow-up to discuss alternative treatment options for acne 03/06/2024 Other rosacea (ICD-10 - L71.8) Patient continues to use topical tretinoin with some relief of acne symptoms. Due to persistent symptoms we will increase her to 0.05% to see if this can better manage and resolve her acne located to cheeks and chin 08/07/2024 Mixed hyperlipidemia (ICD-10 - E78.2) Previous labs did reveal slight elevation in LDL. Patient to continue working on adjusting her diet as well as taking her fish oil supplement, [employer], daily to help lower her LDL. Will recheck her lipid panel to ensure adequate LDL control 08/07/2024 Attention and concentration deficit (ICD-10 - R41.840) Stable and patient continues on current medication regimen and is seeing her psychiatrist for medication management for ADHD. She states that she was unable to obtain her Vyvanse and due to that she did return back to Adderall use 08/07/2024 Acne vulgaris (ICD-10 - L70.0) Patient has seen great improvement in her acne since starting Retin-A. Patient to remain on current topical treatment 08/07/2024 Vitamin D deficiency, unspecified (ICD-10 - E55.9) Will check level to verify that there is no deficiency 08/07/2024 Encounter for screening for cardiovascular disorders (ICD-10 - Z13.6) Blood pressure stable. Will check for comorbidity of hyperlipidemia and hyperglycemia to further assess risk 08/07/2024 Encounter for immunization (ICD-10 - Z23) Vaccines up-to-date 08/07/2024 Encounter for antibody response examination (ICD-10 - Z01.84) Titers have been checked in the past and there is immunity to rubeola 08/07/2024 Encounter for screening for other viral diseases (ICD-10 - Z11.59) Will screen for hepatitis C as per general recommendation 08/07/2024 Encounter for screening examination for other mental health and behavioral disorders (ICD-10 - Z13.39) PHQ score reviewed and no further interventions warranted at this time 08/07/2024 Encounter for screening for malignant neoplasm of cervix (ICD-10 - Z12.4) Pap smear completed in 2023 with normal results. Pt aware to repeat this in 2026 to ensure she is up-to-date with cervical cancer screenings 08/07/2024 Other Plan Of Treatment Pending Test Test Name Order Date Exercise Stress Nuclear Test 08/07/2024 ANTI-HEPATITIS C W/RFLX HCV QNT 05/16/19 24 MMR (MEASLES, MUMPS, RUBELLA) IGG TITER 05/16/2023 HOLTER MONITOR, 7 DAYS, APPLICATION 02/06 HOLTER MONITOR, 7 DAYS, INTERPRETATION 1 Measles/Mumps/Rubella [id number] Comp. Metabolic Panel [id number] 2023 LP+Non-HDL Cholesterol-[id number] 11/14/2023 Pathology [id number] 01/15/2024 Next Appt Details Provider Name:Guerda Montalvo , 11/13/2024 11:00:00 AM, [address] [place] [address], [phone], Provider Name:Guerda Montalvo , 08/18/2025 09:30:00 AM, [address] [place] [address], [phone], Insurance Providers Payer Name Payer Address Payer Phone Subscriber Number Group Number Insured Name Patient Relationship to Insured Coverage Start Date Coverage End Date [employer] [place] P[place] [address] [place] [address] [id number] Mikala Erickson Self - patient is the insured Medical (General) History Medical History History ICD Code attention deficit disorder received rabies vaccines in 2017 (due to bat being in her home) Surgical History Surgery Date(Month/Year) wisdom teeth extraction Hospitalization History Reason Date(Month/Year)
== END 2024-09-23 10:45 | disposition home or self-care (01) ==
LOC: HO.HWS 10:15
PROVIDERS: Visit Provider Advanced Practice Midwife
DX: Z01.419 Encounter for gynecological examination (general) (routine) without abnormal findings (principal)
CPT/HCPCS: 99395; 99459

== ENCOUNTER → 2024-09-23 10:14 | Outpatient (BNVA) | payer BC, MEDICAID, SELFPAY | PROVIDERS: Visit Provider Advanced Practice Midwife ==